=== PATIENT | male | born 1935 | race Two or more races ===

== ENCOUNTER 2024-11-01 22:14 | Emergency (ER) | payer OTHER ==
[~2024-11-01] VITALS: Ht 152.4 cm; Wt 60.8 kg
[2024-11-01] MEDS ORDERED: PLAVIX75 MG PO (22:51)
[2024-11-01] MEDS ORDERED: ATORVASTATIN CA10 MG PO (22:51)
[2024-11-01] MEDS ORDERED: FINASTERIDE5 MG PO (22:52)
[2024-11-01] MEDS ORDERED: TAMS0.4C PO (22:52)
[2024-11-01] MEDS ORDERED: CHLORTHALIDONE25 MG PO (22:53)
[2024-11-01] MEDS ORDERED: ALDACTONE25 MG PO (22:53)
[2024-11-01] MEDS ORDERED: OMEPRAZOLE-BIC1 EAC1 PO (22:53)
[2024-11-01] MEDS ORDERED: PEPCID AC10 MG (22:53)
[2024-11-01] MEDS ORDERED: VAZALORE81 MG PO (22:54)
[2024-11-01] MEDS ORDERED: KEPPRA100 MG/1 M (22:54)
[2024-11-01] MEDS ORDERED: GRALISE600 MG (22:54)
[2024-11-02 00:49] LABS: ABG PH 7.411 (7.35-7.45); ABG PO2 79.9 mmHg (80-100); ABG pCO2 38.8 mmHg (35-45); BASE EXCESS -0.3 mmol/l; BICARBONATE 24.1 mmol/l (23-25); SaO2 95.8 %; Tco2 25.3 mmol/l
[2024-11-02 00:55] LABS: BASO % 0.2 % (0.1-1.2); EOS # 0.36 (0.04-0.54); EOS % 4.1 % (0.7-7.0); HEMATOCRIT 41.4 % (40.1-51.0); LYMPH # 1.43 (1.18-3.74); LYMPH % 16.3 % (19.3-53.1); MEAN CORPUSCULAR HEMOGLOBIN 30.4 pg (25.6-32.2); MONO # 0.63 (0.24-0.82); MONO % 7.2 % (4.7-12.5); NEUT # 6.31 (1.56-6.13); PLATELET COUNT 152 K/uL (163-369); RED CELL DISTRIBUTION WIDTH 12.5 % (11.6-14.4)
[2024-11-02 01:24] LABS: INR 1.07; PARTIAL THROMBOPLASTIN TIME 27.1 SECONDS (22.0-34.0); PROTHROMBIN TIME 11.6 SECONDS (9.0-11.5)
[2024-11-02 01:40] LABS: ALBUMIN 3.5 gm/dL (3.4-5.0); BILIRUBIN TOTAL 0.74 mg/dL (0.3-1.2); CALCIUM 8.9 mg/dL (8.5-10.1); CREATININE SERUM 0.92 mg/dL (0.70-1.30); GFR 77.64; GLOBULINA 3.5 G/DL (2.4-3.5); POTASSIUM 3.79 mEq/L (3.5-5.1)
[2024-11-02 06:37] LABS: allen test SATISFACTORY; mode ROOM AIR; o2 21 %; puncture site RADIAL RIGHT
== END 2024-11-02 05:02 ==
LOC: ER 23:22
PROVIDERS: General Practice
DX: I69.998 Other sequelae following unspecified cerebrovascular disease (principal); R53.1 Weakness; I10 Essential (primary) hypertension; Z88.5 Allergy status to narcotic agent